=== PATIENT | female | born 1955 | race Caucasian/White ===

== ENCOUNTER 2017-01-28 08:15 | Day surgery (SDC) | END 2017-01-28 15:17 | disposition home or self-care (01) | DX: D23.72 Other benign neoplasm of skin of left lower limb, including hip (principal); E66.9 Obesity, unspecified; Z68.30 Body mass index [BMI] 30.0-30.9, adult | CPT/HCPCS: 14021; 71010; 80053; 85025; 85610; 85730; 88307; 93005; J0690; J2250; J2405; J3010; Z7512; Z7610 ==